=== PATIENT | female | born 1995 | race Caucasian/White ===

== ENCOUNTER → 2017-07-01 17:10 | Outpatient (CLI) | payer OTHER ==
[2017-07-01 17:25] LABS: BASOPHILS 0.5 % (0-2); EOSINOPHILS 0.8 % (0-7); HEMATOCRIT 41.1 % (36.0-48.0); HEMOGLOBIN 14.1 g/dL (12-16); IMMATURE GRANULOCYTES 0.1 % (0-5); LYMPHOCYTES 17.6 % (15-50); MCH 30.7 pg (26.0-34.0); MCHC 34.3 g/dL (31.0-37.0); MCV 89.3 fL (80.0-100.0); MEAN PLATELET VOLUME 10.4 fL (7.4-10.4); MONOCYTES 3.4 % (2-11); NEUTROPHILS 77.6 % (40-80); PLATELET COUNT 247 10x3/uL (130-400); RDW 12.6 % (11.5-14.5); WBC 7.7 10x3/uL (4.8-10.8)
[2017-07-01 17:42] LABS: ALBUMIN 4.1 g/dL (3.4-5.0); ALKALINE PHOSPHATASE 44 U/L (46-116); ALT (SGPT) 24 U/L (10-68); BILIRUBIN - TOTAL 0.57 mg/dL (0.2-1.3); CALC OSMOLALITY 279 mosm/kg (275-300); CALCIUM 8.7 mg/dL (8.5-10.1); CARBON DIOXIDE 27.3 mmol/L (21.0-32.0); CHLORIDE - SERUM 104 mmol/L (98-107); CREATININE - SERUM 0.8 mg/dL (0.6-1.3); GLUCOSE 100 mg/dL (74-106); POTASSIUM - SERUM 3.6 mmol/L (3.5-5.1); PROTEIN - SERUM 7.5 g/dL (6.4-8.2); SODIUM 141 mmol/L (136-145); UREA NITROGEN 11 mg/dL (7-18); eGFR NON AFRICAN AMERICAN > 90 mL/min (90-120)
[2017-07-05 21:07] LABS: CYTOMEGALOVIRUS AB IGG <0.60 U/mL (0.00-0.59); EBV - EARLY ANTIGEN AB IGG <9.0 U/mL (0.0-8.9); EBV - NUCLEAR ANTIGEN AB IGG <18.0 U/mL (0.0-17.9); EBV VIRAL CAPSID AB IGG <18.0 U/mL (0.0-17.9); EBV VIRAL CAPSID AB IGM <36.0 U/mL (0.0-35.9)
== END | disposition home or self-care (01) ==
LOC: D.LABREF 17:10
PROVIDERS: Student in an Organized Health Care Education/Training Program
DX: A69.20 Lyme disease, unspecified (principal)

== ENCOUNTER → 2017-08-23 10:24 | Outpatient (CLI) | payer OTHER ==
[2017-08-23 12:26] LABS: BASOPHILS 0.5 % (0-2); EOSINOPHILS 0.8 % (0-7); HEMATOCRIT 41.1 % (36.0-48.0); HEMOGLOBIN 14.3 g/dL (12-16); IMMATURE GRANULOCYTES 0.2 % (0-5); LYMPHOCYTES 20.9 % (15-50); MCH 31.4 pg (26.0-34.0); MCHC 34.8 g/dL (31.0-37.0); MCV 90.1 fL (80.0-100.0); MEAN PLATELET VOLUME 10.7 fL (7.4-10.4); MONOCYTES 7.1 % (2-11); NEUTROPHILS 70.5 % (40-80); PLATELET COUNT 228 10x3/uL (130-400); RBC 4.56 10x6/uL (4.00-5.40); RDW 12.2 % (11.5-14.5); WBC 5.9 10x3/uL (4.8-10.8)
[2017-08-23 13:03] LABS: ALBUMIN 4.3 g/dL (3.4-5.0); ALKALINE PHOSPHATASE 42 U/L (46-116); ALT (SGPT) 23 U/L (10-68); BILIRUBIN - TOTAL 0.79 mg/dL (0.2-1.3); CALC OSMOLALITY 280 mosm/kg (275-300); CALCIUM 9.4 mg/dL (8.5-10.1); CARBON DIOXIDE 25.2 mmol/L (21.0-32.0); CHLORIDE - SERUM 103 mmol/L (98-107); CREATININE - SERUM 0.8 mg/dL (0.6-1.3); FERRITIN 46 ng/mL (3-244); GLUCOSE 75 mg/dL (74-106); POTASSIUM - SERUM 3.8 mmol/L (3.5-5.1); PROTEIN - SERUM 7.5 g/dL (6.4-8.2); SODIUM 142 mmol/L (136-145); T4 THYROXIN - FREE 1.23 ng/dL (0.76-1.46); UREA NITROGEN 10 mg/dL (7-18); eGFR NON AFRICAN AMERICAN > 90 mL/min (90-120)
[2017-08-23 13:05] LABS: C-REACTIVE PROTEIN < 0.2 mg/dL (0.0-0.9)
[2017-08-23 13:21] LABS: APPEARANCE CLOUDY (CLEAR); BILIRUBIN NEGATIVE (NEGATIVE); COLOR YELLOW (YELLOW); GLUCOSE NEGATIVE (NEGATIVE); KETONE SMALL mg/dL (NEGATIVE); NITRITE NEGATIVE (NEGATIVE); PROTEIN TRACE mg/dL (NEGATIVE); UROBILINOGEN NORMAL (NORMAL)
[2017-08-23 13:22] LABS: BACTERIA MODERATE /hpf (NONE SEEN); MUCUS >1+ /lpf (NONE SEEN); RED CELLS - URINE 0-5 /hpf (0-5); WHITE CELLS - URINE 25-50 /hpf (0-5)
[2017-08-23 13:31] LABS: ERYTHROCYTE SEDIMENTATION RATE 3 mm/hr (0-20)
[2017-08-23 13:40] LABS: FIBRINOGEN 256 mg/dL (239-481)
[2017-08-23 13:41] LABS: APTT 27.6 SECONDS (22.8-39.4)
[2017-08-23 13:42] LABS: D-DIMER-QUANTITATIVE < 0.27 ug/mLFEU (0.20-0.54)
[2017-08-24 06:13] LABS: T3 - FREE 3.3 pg/mL (2.0-4.4); THYROID PEROXIDASE ABS 10 IU/mL (0-34)
[2017-08-24 07:24] LABS: DHEA-SULFATE 188.1 ug/dL (110.0-431.7)
[2017-08-24 08:18] LABS: IMMUNOGLOBULIN A 152 mg/dL (87-352); IMMUNOGLOBULIN M 61 mg/dL (26-217)
[2017-08-24 09:17] LABS: VITAMIN D 25 HYDROXY 45.1 ng/mL (30.0-100.0)
[2017-08-24 10:19] LABS: THYROGLOBULIN ANTIBODY <1.0 IU/mL (0.0-0.9)
[2017-08-25 03:10] LABS: IGG SUBCLASS 1 518 mg/dL (248-810); IGG SUBCLASS 2 438 mg/dL (130-555); IGG SUBCLASS 3 151 mg/dL (15-102); IGG SUBCLASS 4 13 mg/dL (2-96); IMMUNOGLOBULIN G 1134 mg/dL (700-1600)
[2017-08-25 08:17] LABS: ACTIVATED PROTEIN C-RESISTANCE 2.6 ratio (2.2-3.5); ANTITHROMBIN III ACTIVITY 117 % (75-135)
[2017-08-26 10:19] LABS: ALDOSTERONE 1.1 ng/dL (0.0-30.0)
== END | disposition home or self-care (01) ==
LOC: D.LAB 10:24
DX: A69.20 Lyme disease, unspecified (principal); Z79.899 Other long term (current) drug therapy